=== PATIENT | male | born 2000 | race African-American/Black ===

== ENCOUNTER 2020-04-24 15:10 | Emergency (ER) | payer SELFPAY ==
[~2020-04-24] VITALS: Ht 170.2 cm; Wt 64.0 kg
[2020-04-24] MEDS ORDERED: KETOROLAC 60MG/2ML VIAL IM ONE (16:45)
[2020-04-24 17:40] VITALS: BP 114/81
== END 2020-04-24 17:57 | disposition home or self-care (01) ==
LOC: ER 15:10
DX: S39.012A Strain of muscle, fascia and tendon of lower back, initial encounter (principal); S13.4XXA Sprain of ligaments of cervical spine, initial encounter; V49.49XA Driver injured in collision with other motor vehicles in traffic accident, initial encounter; Y93.89 Activity, other specified; Y92.89 Other specified places as the place of occurrence of the external cause; Y99.8 Other external cause status; E11.9 Type 2 diabetes mellitus without complications
CPT/HCPCS: 82962; 96372; 99283; J1885